=== PATIENT | male | born 1960 | race African-American/Black ===

== ENCOUNTER 2020-09-20 19:45 | Emergency (ER) | payer MEDICAID ==
[~2020-09-20] VITALS: Ht 182.9 cm; Wt 77.0 kg
[~2020-09-20 19:45] MED LIST: ASPI-1160 PO; ATOR20TA PO; CARV12.545 MT; FURO-151 MT; LOSA25TA26 MT; METF-414 MT
[2020-09-20] MEDS ORDERED: FUROSEMIDE 40MG/4ML VIAL IVP ONE (23:00)
[2020-09-21] MEDS ORDERED: MORPHINE SULFATE 4 MG/ML CPJ (NOT FOR IM USE) IV NR (00:15)
[2020-09-21 01:47] VITALS: BP 113/76
== END 2020-09-21 02:28 | disposition short-term general hospital (02) ==
LOC: ER 19:45 → CANBEDREQ 09-21 05:32
DX: I11.0 Hypertensive heart disease with heart failure (principal); I50.9 Heart failure, unspecified; U07.1 COVID-19; E11.9 Type 2 diabetes mellitus without complications; I25.2 Old myocardial infarction; Z98.61 Coronary angioplasty status
CPT/HCPCS: 71045; 93005; 96374; 96375; 99285; J1940; J2270